=== PATIENT | female | born 1975 | race Caucasian/White ===

== ENCOUNTER 2017-02-16 11:30 | Emergency (ER) | payer OTHER ==
--- NOTE | 2017-02-16 11:48 | ERPHSYRPT ---
- History of Present Illness Time Seen by Provider: 02/16/17 11:41 Source: patient Exam Limitations: no limitations Physician History: States vomited X 2 today, along sinus drainage, sore throat, headache, ?chills, productive cough with yellow sputum and weakness. Denies any CP, SOB, dizziness , urinary symptoms, back pain. States boyfriend's son was sick with cough recently. Took Tylenol and drank OJ without difficulty. Timing/Duration: day(s) (2), intermittent, improved Severity: mild Modifying Factors: Improves With: acetaminophen (improves) Associated Symptoms: nausea, vomiting, cough, headaches, weakness, No abdominal pain, No shortness of breath, No chest pain, No fever Home Medications: Benazepril HCl 40 mg PO DAILY 01/04/17 [History] Escitalopram Oxalate [Lexapro] 20 mg PO DAILY 01/04/17 [History] Potassium Chloride 20 Meq [Klor-Con 20 MEQ] 20 meq PO DAILY 01/04/17 [History] - Review of Systems Constitutional: Chills, Fatigue, Weakness, No Fever Eyes: No Symptoms Ears, Nose, & Throat: Nose Congestion, Nose Discharge, Sinus Drainage Respiratory: Cough, No Dyspnea Cardiac: No Chest Pain, No Edema, No Syncope Abdominal/Gastrointestinal: Nausea, Vomiting, Diarrhea, No Abdominal Pain, No Hematemesis, No Hematochezia Genitourinary Symptoms: No Dysuria, No Frequency Musculoskeletal: No Back Pain, No Neck Pain Skin: No Symptoms, No Rash Neurological: Headache, No Dizziness, No Focal Weakness, No Sensory Changes Psychological: No Symptoms Endocrine: No Symptoms All Other Systems: Reviewed and Negative - Past Medical History Pertinent Past Medical History: Yes Psycho-Social History: Depression - Physical Exam General Appearance: no apparent distress, alert Eye Exam: PERRL/EOMI, eyes nml inspection Ears, Nose, Throat Exam: normal ENT inspection, TMs normal, pharynx normal, moist mucous membranes Neck Exam: normal inspection, non-tender, supple, full range of motion Respiratory Exam: normal breath sounds, lungs clear, No respiratory distress Cardiovascular Exam: regular rate/rhythm, normal heart sounds, normal peripheral pulses Gastrointestinal/Abdomen Exam: soft, normal bowel sounds, No tenderness, No mass Back Exam: normal inspection, normal range of motion, No CVA tenderness, No vertebral tenderness Extremity Exam: normal inspection, normal range of motion, pelvis stable Neurologic Exam: alert, oriented x 3, cooperative, normal mood/affect, nml cerebellar function, nml station & gait, sensation nml, No motor deficits Skin Exam: normal color, warm, dry, No rash Lymphatic Exam: No adenopathy - Course Nursing assessment & vital signs reviewed: Yes - Progress Progress: improved Progress Note: 02/16/17 11:50 Pt. given Zofran. NAD, no vomiting in ED Counseled pt/family regarding: diagnosis - Departure Time of Disposition: 11:50 Departure Disposition: Home Clinical Impression: Bronchitis Condition: Stable Critical Care Time: No Instructions: Vomiting -- Adult, Bronchitis Additional Instructions: RX:Zpack/Zofran Clear liquids for next 1-2 days Return for worse cough, short of breath, vomiting, fever or any problems Prescriptions: Azithromycin [Zithromax Tri-Derek] 500 mg PO DAILY #3 tablet Ondansetron [Zofran Odt] 4 mg PO Q6-8HPRN PRN #10 tab.rapdis PRN Reason: Nausea/Vomiting
[2017-02-16 11:51] VITALS: BP 160/107; PULSE 94; O2SAT 98
[2017-02-16] MEDS ORDERED: ZOFRAN ODT 4 MG PO ONE (11:55)
[2017-02-16] MEDS ORDERED: ZOFRAN ODT 4 MG ONE (11:58)
== END 2017-02-16 12:07 | disposition home or self-care (01) ==
LOC: ED 11:30
DX: J20.9 Acute bronchitis, unspecified (principal)
CPT/HCPCS: 99281; 99283; Q0162